=== PATIENT | male | born 1985 | race Caucasian/White ===

== ENCOUNTER 2020-05-01 23:02 | Emergency (ER) | payer SELFPAY ==
[~2020-05-01] VITALS: Ht 177.8 cm; Wt 90.7 kg
[2020-05-01 23:10] VITALS: BP_SYST 163
--- NOTE | 2020-05-01 23:10 | NUR ---
Placed in room 1 . Placed on air sampling and monitoring, blood pressure machine and pulse oximeter. To gown for exam. Side rails up.
--- NOTE | 2020-05-01 23:12 | NUR ---
ER Dr. Urena at bedside examining patient.
--- NOTE | 2020-05-01 23:12 | NUR ---
Adali cota in ED - 05/01/20 at 2313 by SDEDCA SUSAN Urena at bedside examining patient.
--- NOTE | 2020-05-01 23:13 | NUR ---
pt from home a&o x4 c/o of left sided substernal chest pain, dull and nonradiating, that started while he was exercising about 45 mins ago. pt reports he stopped exercising immediately because he became anxious. pt reports his chest pain is now a 2 out of 10. pt denies SOB.
[2020-05-01 23:19] VITALS: BP_SYST 145
--- NOTE | 2020-05-01 23:19 | NUR ---
Patient given written and verbal discharge instructions by Dr. Urena and verbalizes understanding. ER MD discussed with patient the results and treatment provided. Patient in stable condition. ID arm band removed. Rx of lisinopril given. Patient educated on pain management and to follow up with PMD. Pain Scale 2/10. Opportunity for questions provided and answered. Medication side effect fact sheet provided.
--- NOTE | 2020-05-01 23:19 | NUR ---
Note undone in EDM - 05/01/20 at 2333 by MITESH Patient given written and verbal discharge instructions and verbalizes understanding. ER discussed with patient the results and treatment provided. Patient in stable condition. ID arm band removed. Rx of lisinopril given. Patient educated on pain management and to follow up with PMD. Pain Scale 2/10. Opportunity for questions provided and answered. Medication side effect fact sheet provided.
== END 2020-05-01 23:19 | disposition home or self-care (01) ==
LOC: SED 23:02
DX: R07.89 Other chest pain (principal); I10 Essential (primary) hypertension
CPT/HCPCS: 93005; 99283